=== PATIENT | male | born 1940 | race Caucasian/White ===

== ENCOUNTER 2019-07-26 14:05 | Emergency (ER) | payer OTHER ==
[~2019-07-26] VITALS: Ht 193 cm; Wt 106.1 kg
[2019-07-26 15:21] LABS: Basophils # (auto) 0.1 uL; Basophils % (auto) 0.8 % (0.0-2.0); Eosinophils # (auto) 0.5 uL; Eosinophils % (auto) 6.7 % (0.0-7.0); Hematocrit 38.8 % (41.0-53.0); Hemoglobin 12.6 g/dL (13.5-17.5); Lymphocytes # (auto) 1.4 uL; Lymphocytes % (auto) 17.8 % (10.0-50.0); Mean Corpuscular Hemoglobin 30.7 pg (28.0-32.0); Mean Corpuscular Hgb Conc. 32.6 g/dL (32.0-36.0); Mean Corpuscular Volume 94.3 fL (80.0-100.0); Monocytes # (auto) 1.1 uL; Monocytes % (auto) 13.2 % (0.0-12.0); Neutrophils # (auto) 4.9 uL; Neutrophils % (auto) 61.5 % (37.0-80.0); Nucleated Red Blood Cells % 0.2 %; Platelet Count (auto) 178 10^3/uL (140-450); Red Blood Cells 4.11 10^6/uL (4.5-5.90); Red Cell Distribution Width 15.6 % (11.8-14.3)
[2019-07-26 15:47] LABS: Urine Bacteria MANY /hpf (None Seen); Urine Blood Negative /uL (Negative); Urine Mucus FEW (None Seen); Urine Specific Gravity 1.022 (1.001-1.035); Urine WBC 72 /hpf (0 - 3); Urine WBC Clumps PRESENT /hpf (None Seen)
[2019-07-26 15:49] LABS: Albumin 3.6 g/dL (3.4-5.0); Anion Gap 4 (5-15); Blood Urea Nitrogen 32 mg/dL (7-18); Calcium 8.3 mg/dL (8.5-10.1); Carbon Dioxide 25 mmol/L (21-32); Chloride 114 mmol/L (98-107); Glucose 121 mg/dL (74-106); Magnesium 2.3 mg/dL (1.6-2.6); Sodium 143 mmol/L (136-145)
[2019-07-26 15:56] LABS: Alanine Aminotransferase 43 U/L (16-61); Alkaline Phosphatase 95 U/L (45-117); Aspartate Aminotransferase 22 U/L (15-37); BUN/Creatinine Ratio 20.3; Bilirubin, Total 0.3 mg/dL (0.2-1.0); GFR African American 55 mL/min; GFR Non-African American 45 mL/min; Total Protein 7.1 g/dL (6.4-8.2)
[2019-07-26 21:09] VITALS: BP 158/77
== END 2019-07-26 21:16 | disposition home or self-care (01) ==
LOC: ER 14:10
DX: N39.0 Urinary tract infection, site not specified (principal); G25.2 Other specified forms of tremor; E78.5 Hyperlipidemia, unspecified; I10 Essential (primary) hypertension
CPT/HCPCS: 36415; 71046; 80053; 81001; 83735; 84484; 85025; 93005; 94761

== ENCOUNTER → 2019-12-30 | Day surgery (SDC) | payer OTHER ==
[~2019-12-30] VITALS: Ht 193 cm; Wt 111.1 kg
[~2019-12-30] MED LIST: ALBUAER3 IN; AMLO5TAB15 PO; BUPIVACAINE W/ EPINEPH 0.25% INJ 50ML MDV ONE; CLINDAMYCIN 600MG IV 50 ML IV ONE; CLOP75TA41 PO; DOCU-94 PO; DexAMETHasone SOD PHOS 10MG/1ML VIAL INJ ONE; ETOMIDATE (2MG/ML) 20ML VIAL IV ONE; FLUT250M2 INH; HEPARIN SODIUM (PORCINE) 5000 UNITS/ML 1ML VIAL ONE; HYDR-4833 GT; HYDROmorphone HCL 2 MG/ML VL IV PRN; LABETALOL HCL 5 MG/ML 4ML SYRINGE IV PRN; LIDOCAINE W/ EPINEPHRINE 1% 20ML VIAL ONE; MELA10TA PO; MEPERIDINE HCL (50 MG/ML) 1 ML VIAL ONE; MIDAZOLAM HCL 1MG/1ML-2 ML VIAL IV PRN; MIDAZOLAM HCL 1MG/1ML-2 ML VIAL ONE; MONT10TA34 PO; MORPHINE SULFATE 4 MG/ML SYR/VIAL IV PRN; ONDANSETRON HCL 4 MG/2 ML VIAL IV PRN; ONDANSETRON HCL 4 MG/2 ML VIAL ONE; PANT40TA2 PO; PROPOFOL 10 MG/ML 20 ML IV ONE; SUCCINYLCHOLINE CHLORIDE 20 MG/ML 10ML VIAL IV ONE; TAMS0.4C36 PO; ePHEDrine SULFATE 50 MG/ML AMP IV PRN; fentaNYL CITRATE 100 MCG/2 ML VL ONE
[2019-12-30 10:18] VITALS: BP 149/71
== END | disposition home or self-care (01) ==
LOC: SUR 06:51
PROVIDERS: ATTEND Surgery
DX: K43.0 Incisional hernia with obstruction, without gangrene (principal); K21.9 Gastro-esophageal reflux disease without esophagitis; J45.909 Unspecified asthma, uncomplicated; I10 Essential (primary) hypertension; D64.9 Anemia, unspecified; I25.10 Atherosclerotic heart disease of native coronary artery without angina pectoris; E66.9 Obesity, unspecified; Z88.2 Allergy status to sulfonamides; Z79.899 Other long term (current) drug therapy; Z90.49 Acquired absence of other specified parts of digestive tract; Z96.652 Presence of left artificial knee joint; Z86.010 Personal history of colon polyps; Z95.818 Presence of other cardiac implants and grafts; Z88.8 Allergy status to other drugs, medicaments and biological substances; Z88.0 Allergy status to penicillin; Z68.30 Body mass index [BMI] 30.0-30.9, adult
CPT/HCPCS: 49561; 88302; J0330; J1100; J1644; J2175; J2250; J2405; J2704; J3010; J3490

== ENCOUNTER → 2020-02-12 | Emergency (ER) | payer OTHER ==
[~2020-02-12] VITALS: Ht 193 cm; Wt 108.9 kg
[~2020-02-12] MED LIST changes: +ALBUTEROL SULF 2.5 MG/0.5ML(0.5%) NEB SOLN NEB ONE; -BUPIVACAINE W/ EPINEPH 0.25% INJ 50ML MDV ONE; -CLINDAMYCIN 600MG IV 50 ML IV ONE; -DexAMETHasone SOD PHOS 10MG/1ML VIAL INJ ONE; -ETOMIDATE (2MG/ML) 20ML VIAL IV ONE; -HEPARIN SODIUM (PORCINE) 5000 UNITS/ML 1ML VIAL ONE; -HYDROmorphone HCL 2 MG/ML VL IV PRN; +IPRATROPIUM BROM 0.5 MG/2.5ML INH SOL NEB ONE; -LABETALOL HCL 5 MG/ML 4ML SYRINGE IV PRN; -LIDOCAINE W/ EPINEPHRINE 1% 20ML VIAL ONE; -MEPERIDINE HCL (50 MG/ML) 1 ML VIAL ONE; -MIDAZOLAM HCL 1MG/1ML-2 ML VIAL IV PRN; -MIDAZOLAM HCL 1MG/1ML-2 ML VIAL ONE; -MORPHINE SULFATE 4 MG/ML SYR/VIAL IV PRN; -ONDANSETRON HCL 4 MG/2 ML VIAL IV PRN; -ONDANSETRON HCL 4 MG/2 ML VIAL ONE; -PROPOFOL 10 MG/ML 20 ML IV ONE; -SUCCINYLCHOLINE CHLORIDE 20 MG/ML 10ML VIAL IV ONE; +cefTRIAXone 1GM/50ML D5W 50 ML IV ONE; -ePHEDrine SULFATE 50 MG/ML AMP IV PRN; -fentaNYL CITRATE 100 MCG/2 ML VL ONE; +methylPREDNISolone SOD SUCC 125 MG/2 ML VL IV ONE
[2020-02-12 05:59] LABS: Urine Bacteria NONE SEEN /hpf (None Seen); Urine Blood Negative /uL (Negative); Urine Mucus FEW (None Seen); Urine Specific Gravity 1.018 (1.001-1.035); Urine WBC 5 /hpf (0 - 3)
[2020-02-12 07:12] VITALS: BP 136/62
== END | disposition home or self-care (01) ==
LOC: ER 04:25
DX: N39.0 Urinary tract infection, site not specified (principal); R33.9 Retention of urine, unspecified; J45.909 Unspecified asthma, uncomplicated; I10 Essential (primary) hypertension; I25.10 Atherosclerotic heart disease of native coronary artery without angina pectoris; E78.5 Hyperlipidemia, unspecified; Z88.0 Allergy status to penicillin; Z88.1 Allergy status to other antibiotic agents; Z88.2 Allergy status to sulfonamides
CPT/HCPCS: 51702; 74176; 81001; 94640; 96365; 96375; 99284; J0696; J2930; J7644

== ENCOUNTER 2020-02-18 02:54 | Emergency (ER) | payer OTHER ==
[~2020-02-18] VITALS: Ht 193 cm; Wt 108.9 kg
[~2020-02-18 02:54] MED LIST changes: -ALBUTEROL SULF 2.5 MG/0.5ML(0.5%) NEB SOLN NEB ONE; -IPRATROPIUM BROM 0.5 MG/2.5ML INH SOL NEB ONE; -cefTRIAXone 1GM/50ML D5W 50 ML IV ONE; -methylPREDNISolone SOD SUCC 125 MG/2 ML VL IV ONE
[2020-02-18 03:21] VITALS: BP 106/72
[2020-02-18 04:32] LABS: Urine Bacteria FEW /hpf (None Seen); Urine Blood 3+ /uL (Negative); Urine Hyaline Cast FEW /lpf (0 - 2); Urine Mucus FEW (None Seen); Urine Specific Gravity 1.018 (1.001-1.035); Urine WBC 12 /hpf (0 - 3)
== END 2020-02-18 05:10 | disposition home or self-care (01) ==
LOC: ER 02:56
DX: N39.0 Urinary tract infection, site not specified (principal); R33.9 Retention of urine, unspecified; Z88.0 Allergy status to penicillin; Z88.2 Allergy status to sulfonamides; Z88.1 Allergy status to other antibiotic agents
CPT/HCPCS: 81001

== ENCOUNTER → 2020-02-19 | Emergency (ER) | payer OTHER | END | disposition left against medical advice (07) | LOC: ER 05:09 | DX: R35.0 Frequency of micturition (principal); Z53.21 Procedure and treatment not carried out due to patient leaving prior to being seen by health care provider ==

== ENCOUNTER 2021-05-04 02:11 | Emergency (ER) | payer OTHER ==
[~2021-05-04] VITALS: Ht 190.5 cm; Wt 105.2 kg
[~2021-05-04 02:11] MED LIST changes: +AMLO-489 PO; -AMLO5TAB15 PO; -CLOP75TA41 PO; +CLOP75TA70 PO; -MONT10TA34 PO; +MONT10TA42 PO
[2021-05-04 03:59] LABS: Urine Bacteria MANY /hpf (None Seen); Urine Blood 3+ /uL (Negative); Urine Mucus FEW (None Seen); Urine Specific Gravity 1.019 (1.001-1.035); Urine WBC 7 /hpf (0 - 3)
[2021-05-04 06:00] VITALS: BP 139/68
== END 2021-05-04 06:17 | disposition home or self-care (01) ==
LOC: ER 02:18
DX: N39.0 Urinary tract infection, site not specified (principal); R33.9 Retention of urine, unspecified; E78.5 Hyperlipidemia, unspecified; I10 Essential (primary) hypertension; Z88.0 Allergy status to penicillin; Z88.2 Allergy status to sulfonamides
CPT/HCPCS: 51702; 81001

== ENCOUNTER 2022-01-30 06:57 | Day surgery (SDC) | payer OTHER ==
[~2022-01-30] VITALS: Ht 193 cm; Wt 105.2 kg
[~2022-01-30 06:57] MED LIST changes: +APIX2.5T PO; +ASCO500T11 GT; +ASPI81TA10 PO; +CHOL20007 PO; -CLOP75TA70 PO; -FLUT250M2 INH; +FLUT500M2 INH; -HYDR-4833 GT; +IPRA0.00 IN; -MELA10TA PO; -MONT10TA42 PO; +SERT50TA19 PO; +ZINC220C8 PO
[2022-01-30] MEDS ORDERED: diphenhdrAMINE HCL 50 MG/1 ML VL IV ONE (08:00)
[2022-01-30] MEDS ORDERED: fentaNYL CITRATE 100 MCG/2 ML VL IV ONE (08:00)
[2022-01-30] MEDS ORDERED: MIDAZOLAM HCL 2MG/2ML 2ml VIAL (1mg/ml) IV ONE (08:00)
[2022-01-30] MEDS ORDERED: LIDOCAINE VISCOUS 2% 15ML UD MT ONE (08:00)
== END 2022-01-30 09:11 | disposition home or self-care (01) ==
LOC: CATH 06:57
PROVIDERS: ATTEND Internal Medicine
DX: I48.91 Unspecified atrial fibrillation (principal); I25.10 Atherosclerotic heart disease of native coronary artery without angina pectoris; I11.9 Hypertensive heart disease without heart failure; Z53.8 Procedure and treatment not carried out for other reasons; Z95.5 Presence of coronary angioplasty implant and graft; Z88.0 Allergy status to penicillin; Z88.8 Allergy status to other drugs, medicaments and biological substances; Z79.899 Other long term (current) drug therapy; Z82.49 Family history of ischemic heart disease and other diseases of the circulatory system; Z20.822 Contact with and (suspected) exposure to COVID-19; Z88.1 Allergy status to other antibiotic agents
CPT/HCPCS: C9803; U0003; 99152; J2250

== ENCOUNTER 2023-02-14 17:41 | Inpatient (IN) | payer OTHER ==
[~2023-02-14] VITALS: Ht 193 cm; Wt 113.0 kg
[2023-02-15] VITALS (10 sets, daily range): BP systolic 108–144; BP diastolic 43–79
[2023-02-15] MEDS ORDERED: NITROGLYCERIN 0.4 MG SL TAB SL PRN (01:45)
[2023-02-15] MEDS ORDERED: MORPHINE SULFATE INJ 2 MG/ml SYRG IV PRN (01:45)
[2023-02-15] MEDS ORDERED: DOCUSATE SOD 100 MG CAP PO PRN (01:45)
[2023-02-15] MEDS ORDERED: ONDANSETRON HCL 4 MG/2 ML VIAL IV PRN (01:45)
[2023-02-15] MEDS ORDERED: ACETAMINOPHEN 325 MG TAB PO PRN (01:45)
[2023-02-15] MEDS: SODIUM CHLORIDE 0.9% 1,000 ML IV SCH ×2 (03:00→15:17)
[2023-02-15] MEDS: ALBUTEROL SULF 2.5 MG/0.5ML(0.5%) NEB SOLN NEB PRN ×3 (04:35→17:42)
[2023-02-15] MEDS: IPRATROPIUM BROM 0.5 MG/2.5ML INH SOL NEB PRN ×3 (04:36→17:42)
[2023-02-15 05:50] LABS: Basophils # (auto) 0 10 ^3/uL (0-0.2); Eosinophils # (auto) 0 10 ^3/uL (0-0.8); Eosinophils % (auto) 0.2 % (0.0-7.0); Hemoglobin 11.1 g/dL (13.5-17.5); Red Cell Distribution Width 15.9 % (11.8-14.3)
[2023-02-15 05:53] LABS: Hematocrit 32.7 % (41.0-53.0); Lymphocytes # (auto) 0.4 10 ^3/uL (0.4-5.4); Lymphocytes % (auto) 2.7 % (10.0-50.0); Mean Corpuscular Hemoglobin 36.1 pg (28.0-32.0); Mean Corpuscular Hgb Conc. 33.8 g/dL (32.0-36.0); Mean Corpuscular Volume 106.7 fL (80.0-100.0); Monocytes # (auto) 1.3 10 ^3/uL (0-1.3); Monocytes % (auto) 8.1 % (0.0-12.0); Neutrophils # (auto) 13.9 10 ^3/uL (1.6-8.6); Red Blood Cells 3.06 10^6/uL (4.5-5.90); White Blood Cell 15.6 10^3/uL (4.4-10.8)
[2023-02-15 06:06] LABS: Calcium 7.9 mg/dL (8.5-10.1); Potassium 3.5 mmol/L (3.5-5.1)
[2023-02-15 06:09] LABS: BUN/Creatinine Ratio 23.2 (10.0-20.0)
[2023-02-15 07:36] LABS: Urine Bacteria FEW /hpf (None Seen); Urine Blood 2+ /uL (Negative); Urine Specific Gravity 1.017 (1.001-1.035); Urine WBC 32 /hpf (0 - 3)
[2023-02-15] MEDS: PANTOPRAZOLE 40 MG/10 ML VIAL INJ IV SCH (09:14)
[2023-02-15] MEDS ORDERED: levoFLOXacin 500MG 100 ML IV SCH (10:00)
[2023-02-15] MEDS ORDERED: DIGOXIN (250MCG/ML) 2 ML AMPULE IV ONE (14:15)
[2023-02-15] MEDS ORDERED: LORazepam 2MG/ML-1ML VIAL IV PRN (21:15)
[2023-02-15] MEDS: APIXABAN 2.5 MG TAB PO SCH (21:39)
[2023-02-15] MEDS: AMIODARONE HCL 200 MG TAB PO SCH (21:39)
[2023-02-15 22:33] LABS: Folate (Folic Acid) 15.38 ng/mL (5.38-24)
[2023-02-16] MEDS: SODIUM CHLORIDE 0.9% 1,000 ML IV SCH (04:25)
[2023-02-16 05:00] VITALS: BP 142/75
[2023-02-16] MEDS: ALBUTEROL SULF 2.5 MG/0.5ML(0.5%) NEB SOLN NEB SCH ×2 (06:06→11:23)
[2023-02-16] MEDS: IPRATROPIUM BROM 0.5 MG/2.5ML INH SOL NEB SCH ×2 (06:06→11:24)
[2023-02-16 06:39] LABS: Basophils # (auto) 0 10 ^3/uL (0-0.2); Basophils % (auto) 0.2 % (0.0-2.0); Eosinophils # (auto) 0.1 10 ^3/uL (0-0.8)
[2023-02-16 06:40] LABS: Eosinophils % (auto) 0.9 % (0.0-7.0); Hematocrit 31.2 % (41.0-53.0); Hemoglobin 10.8 g/dL (13.5-17.5); Lymphocytes # (auto) 0.6 10 ^3/uL (0.4-5.4); Lymphocytes % (auto) 4.8 % (10.0-50.0); Mean Corpuscular Hemoglobin 37.4 pg (28.0-32.0); Mean Corpuscular Hgb Conc. 34.7 g/dL (32.0-36.0); Mean Corpuscular Volume 107.7 fL (80.0-100.0); Monocytes # (auto) 1.1 10 ^3/uL (0-1.3); Monocytes % (auto) 9.1 % (0.0-12.0); Neutrophils # (auto) 10.1 10 ^3/uL (1.6-8.6); Red Blood Cells 2.89 10^6/uL (4.5-5.90); Red Cell Distribution Width 15.6 % (11.8-14.3); White Blood Cell 11.8 10^3/uL (4.4-10.8)
[2023-02-16 06:51] LABS: Calcium 8.4 mg/dL (8.5-10.1); Potassium 3.6 mmol/L (3.5-5.1)
[2023-02-16] MEDS ORDERED: IOHEXOL 300 MG/ML 100ML BOTTLE IJ ONE (08:18)
[2023-02-16] MEDS ORDERED: cefTRIAXone 1GM/50ML D5W 50 ML IV SCH (09:00)
[2023-02-16] MEDS: PANTOPRAZOLE 40 MG/10 ML VIAL INJ IV SCH (09:09)
[2023-02-16] MEDS: APIXABAN 2.5 MG TAB PO SCH (09:09)
[2023-02-16] MEDS: AMIODARONE HCL 200 MG TAB PO SCH (09:10)
[2023-02-16 09:24] VITALS: BP 145/82
[2023-02-16] MEDS ORDERED: levoFLOXacin 500MG 100 ML IV SCH (10:00)
[2023-02-16] MEDS ORDERED: CIPR500T4 PO (12:03)
[2023-02-16] MEDS ORDERED: APIX2.5T PO (12:03)
[2023-02-16] MEDS ORDERED: AMIO200T33 PO (12:03)
[2023-02-16 14:30] VITALS: BP 145/82
== END 2023-02-16 15:20 | disposition home or self-care (01) | DRG 689 ==
LOC: TELE-CENTR 02-15 01:23
PROVIDERS: ADMIT Internal Medicine; ATTEND Internal Medicine
DX: N13.6 Pyonephrosis (principal); G93.41 Metabolic encephalopathy; I48.20 Chronic atrial fibrillation, unspecified; N17.9 Acute kidney failure, unspecified; D64.9 Anemia, unspecified; J45.909 Unspecified asthma, uncomplicated; I12.9 Hypertensive chronic kidney disease with stage 1 through stage 4 chronic kidney disease, or unspecified chronic kidney disease; N18.9 Chronic kidney disease, unspecified; N28.89 Other specified disorders of kidney and ureter; A49.9 Bacterial infection, unspecified; I25.10 Atherosclerotic heart disease of native coronary artery without angina pectoris; D75.89 Other specified diseases of blood and blood-forming organs; Z87.442 Personal history of urinary calculi; Z82.49 Family history of ischemic heart disease and other diseases of the circulatory system; Z88.0 Allergy status to penicillin; Z88.1 Allergy status to other antibiotic agents; Z98.61 Coronary angioplasty status; N40.1 Benign prostatic hyperplasia with lower urinary tract symptoms
CPT/HCPCS: 36415; 70551; 71045; 74178; 76775; 80048; 81001; 82607; 82746; 84443; 85025; 87086; 93005; 93306; 94640; 95819; 97116; 97163; 97530; C9113; G0378; J1956

== ENCOUNTER 2023-12-29 11:19 | Emergency (ER) | payer OTHER ==
[~2023-12-29] VITALS: Ht 193 cm; Wt 108.2 kg
[~2023-12-29 11:19] MED LIST changes: +AMIO200T33 PO; -AMLO-489 PO; -ASCO500T11 GT; -ASPI81TA10 PO; +CIPR500T4 PO; +SERT-206 PO; -SERT50TA19 PO; -ZINC220C8 PO
[2023-12-29 12:33] LABS: Urine Bacteria FEW /hpf (None Seen); Urine Blood 2+ /uL (Negative); Urine Budding Yeast MODERATE /hpf (None Seen); Urine Clarity HAZY (Clear); Urine Color Yellow (Yellow); Urine Mucus FEW (None Seen); Urine Protein, UAD 2+ (Negative); Urine Specific Gravity 1.022 (1.001-1.035); Urine Urobilinogen Normal (Negative); Urine WBC 458 /hpf (0 - 3); Urine WBC Clumps PRESENT /hpf (None Seen); Urine pH 7.5 (5.0-8.0)
[2023-12-29 12:36] LABS: Monocytes % (auto) 12.5 % (0.0-12.0); Nucleated Red Blood Cells % 0.1 %
[2023-12-29 12:37] LABS: Basophils # (auto) 0 10 ^3/uL (0-0.2); Basophils % (auto) 0.4 % (0.0-2.0); Eosinophils # (auto) 0 10 ^3/uL (0-0.8); Eosinophils % (auto) 0.3 % (0.0-7.0); Hematocrit 36.1 % (41.0-53.0); Lymphocytes # (auto) 0.8 10 ^3/uL (0.4-5.4); Lymphocytes % (auto) 6.1 % (10.0-50.0); Mean Corpuscular Hemoglobin 37.9 pg (28.0-32.0); Mean Corpuscular Hgb Conc. 33.2 g/dL (32.0-36.0); Mean Corpuscular Volume 114.2 fL (80.0-100.0); Monocytes # (auto) 1.5 10 ^3/uL (0-1.3); Neutrophils % (auto) 80.7 % (37.0-80.0); Red Blood Cells 3.16 10^6/uL (4.5-5.90); Red Cell Distribution Width 13.3 % (11.8-14.3); White Blood Cell 12.4 10^3/uL (4.4-10.8)
[2023-12-29 12:51] LABS: INR 1.14 (0.9-1.15); Partial Thromboplastin Time 29.6 SEC (24.5-34.5); Prothrombin Time 11.9 sec (9.3-11.8)
[2023-12-29 12:56] LABS: Alanine Aminotransferase 21 U/L (7-40); Alkaline Phosphatase 71 U/L (46-116); Anion Gap 6 (5-15); Aspartate Aminotransferase 13 U/L (13-40); Bilirubin, Total 1.9 mg/dL (0.2-1.0); Blood Urea Nitrogen 23 mg/dL (9-23); Calcium 8.5 mg/dL (8.7-10.4); Carbon Dioxide 26 mmol/L (20-30); Chloride 103 mmol/L (98-107); Glucose 104 mg/dL (74-106); Magnesium 1.9 mg/dL (1.6-2.6); Potassium 4.2 mmol/L (3.5-5.1); Sodium 135 mmol/L (136-145); Total Protein 6.2 g/dL (5.7-8.2)
[2023-12-29] MEDS: SODIUM CHLORIDE 0.9% 1,000 ML IV ONE (13:18)
[2023-12-29] MEDS: LORazepam 2MG/ML-1ML VIAL IV ONE (13:19)
[2023-12-29 13:28] LABS: Platelet Estimate Adequate
[2023-12-29 13:29] VITALS: PULSE 103; RESP 22; TEMP 98.7; O2SAT 98
[2023-12-29 13:29] LABS: Macrocytosis Marked
[2023-12-29] MEDS: cefTRIAXone 1GM/50ML D5W 50 ML IV ONE (15:15)
[2023-12-29] MEDS: ALBUTEROL SULF 2.5 MG/0.5ML(0.5%) NEB SOLN NEB ONE (16:23)
[2023-12-29] MEDS: IPRATROPIUM BROM 0.5 MG/2.5ML INH SOL NEB ONE (16:23)
[2023-12-29] MEDS ORDERED: CEFD300C2 PO (17:32)
[2023-12-29] MEDS ORDERED: NITR-87 PO (17:33)
[2023-12-29 18:28] VITALS: BP 133/82; PULSE 99; RESP 16; O2SAT 96
== END 2023-12-29 18:31 | disposition left against medical advice (07) ==
LOC: ER 11:19
DX: A41.9 Sepsis, unspecified organism (principal); N39.0 Urinary tract infection, site not specified; R53.1 Weakness; I12.9 Hypertensive chronic kidney disease with stage 1 through stage 4 chronic kidney disease, or unspecified chronic kidney disease; N18.9 Chronic kidney disease, unspecified; I48.20 Chronic atrial fibrillation, unspecified; D75.89 Other specified diseases of blood and blood-forming organs
CPT/HCPCS: 36415; 70450; 71045; 80053; 81001; 83605; 83735; 83880; 84443; 84484; 85025; 85379; 85610; 85730; 87040; 87086; 93005; 94640; 96361; 96365; 96375; 99285; J0696; J2060; J7030; J7644